=== PATIENT | male | born 1985 | race Caucasian/White ===

== ENCOUNTER 2019-07-22 02:38 | Emergency (ER) | payer MEDICAID ==
[~2019-07-22] VITALS: Ht 175.3 cm; Wt 117.9 kg
[2019-07-22 03:50] LABS: Basophils # (auto) 0.1 uL; Basophils % (auto) 0.6 % (0.0-2.0); Eosinophils # (auto) 0.1 uL; Eosinophils % (auto) 0.7 % (0.0-7.0); Hemoglobin 15.2 g/dL (13.5-17.5); Lymphocytes # (auto) 0.6 uL; Lymphocytes % (auto) 3.7 % (10.0-50.0); Mean Corpuscular Hemoglobin 31.1 pg (28.0-32.0); Mean Corpuscular Hgb Conc. 35.5 g/dL (32.0-36.0); Mean Corpuscular Volume 87.8 fL (80.0-100.0); Monocytes # (auto) 0.7 uL; Monocytes % (auto) 5.1 % (0.0-12.0); Neutrophils # (auto) 13.2 uL; Neutrophils % (auto) 89.9 % (37.0-80.0); Nucleated Red Blood Cells % 0.1 %; Platelet Count (auto) 271 10^3/uL (140-450); Red Blood Cells 4.89 10^6/uL (4.5-5.90); Red Cell Distribution Width 13.8 % (11.8-14.3); White Blood Cell 14.7 10^3/uL (4.4-10.8)
[2019-07-22 04:06] LABS: Albumin 3.9 g/dL (3.4-5.0); BUN/Creatinine Ratio 14.1; Calcium 8.7 mg/dL (8.5-10.1)
[2019-07-22 04:08] LABS: Total Protein 8.2 g/dL (6.4-8.2)
[2019-07-22] MEDS ORDERED: SODIUM CHLORIDE 0.9% 2,000 ML IV ONE (04:30)
[2019-07-22 04:46] LABS: Potassium 2.5 mmol/L (3.5-5.1)
[2019-07-22] MEDS ORDERED: POTASSIUM CHL 20MEQ/100ML 100 ML IV ONE (05:00)
[2019-07-22 06:18] LABS: Urine Bacteria NONE SEEN /hpf (None Seen); Urine Blood Negative /uL (Negative); Urine Mucus FEW (None Seen); Urine WBC 1 /hpf (0 - 3)
[2019-07-22] MEDS ORDERED: ONDANSETRON HCL 4 MG/2 ML VIAL IV ONE (06:30)
[2019-07-22 07:14] LABS: Alcohol, Urine < 3.0 mg/dL (0-5); Amphetamine Screen, Urine NEGATIVE (NEGATIVE); Barbiturate Scree,Urine NEGATIVE (NEGATIVE); Benzodiazephine Screen, Urine NEGATIVE (NEGATIVE); Cannabinoid Screen, Urine NEGATIVE (NEGATIVE); Cocaine Screen, Urine NEGATIVE (NEGATIVE); Opiate Scree,Urine NEGATIVE (NEGATIVE); Phencyclidine Screen, Urine NEGATIVE (NEGATIVE)
[2019-07-22 08:29] VITALS: BP 142/90
[2019-07-22] MEDS ORDERED: cefTRIAXone 1GM/50ML D5W 50 ML IV ONE (09:30)
[2019-07-22] MEDS ORDERED: metroNIDAZOLE 500 MG TAB PO ONE (09:30)
== END 2019-07-22 10:01 | disposition home or self-care (01) ==
LOC: ER 02:38
DX: K52.9 Noninfective gastroenteritis and colitis, unspecified (principal); I10 Essential (primary) hypertension; F17.210 Nicotine dependence, cigarettes, uncomplicated
CPT/HCPCS: 36415; 74176; 80053; 80307; 81001; 82150; 83605; 83690; 84443; 85025; 87040; 96361; 96365; 96375; 99284; J0696; J2405; J3480; J7030

== ENCOUNTER 2020-05-20 20:03 | Emergency (ER) | payer MEDICAID ==
[~2020-05-20] VITALS: Ht 175.3 cm; Wt 135.2 kg
[2020-05-20] MEDS ORDERED: cloNIDine HCL 0.1 MG TAB PO ONE (20:30)
[2020-05-20 21:09] LABS: Basophils # (auto) 0.1 10 ^3/uL (0-0.2); Basophils % (auto) 0.9 % (0.0-2.0); Eosinophils % (auto) 8.4 % (0.0-7.0); Hematocrit 43.2 % (41.0-53.0); Hemoglobin 14.6 g/dL (13.5-17.5); Lymphocytes # (auto) 2.2 10 ^3/uL (0.4-5.4); Lymphocytes % (auto) 18.6 % (10.0-50.0); Mean Corpuscular Hgb Conc. 33.7 g/dL (32.0-36.0); Monocytes # (auto) 0.8 10 ^3/uL (0-1.3); Monocytes % (auto) 6.6 % (0.0-12.0); Neutrophils # (auto) 7.6 10 ^3/uL (1.6-8.6); Neutrophils % (auto) 65.5 % (37.0-80.0); Nucleated Red Blood Cells % 0.1 %; Platelet Count (auto) 274 10^3/uL (140-450); Red Blood Cells 4.86 10^6/uL (4.5-5.90); White Blood Cell 11.6 10^3/uL (4.4-10.8)
[2020-05-20 21:26] LABS: Alanine Aminotransferase 25 U/L (16-61); Albumin 3.8 g/dL (3.4-5.0); Anion Gap 5 (5-15); Aspartate Aminotransferase 19 U/L (15-37); BUN/Creatinine Ratio 13.5; Blood Urea Nitrogen 13 mg/dL (7-18); Calcium 9.3 mg/dL (8.5-10.1); Carbon Dioxide 28 mmol/L (21-32); Chloride 107 mmol/L (98-107); GFR African American 116 mL/min; GFR Non-African American 96 mL/min; Glucose 94 mg/dL (74-106); Potassium 3.4 mmol/L (3.5-5.1); Sodium 140 mmol/L (136-145)
[2020-05-20 21:27] LABS: INR 0.96 (0.9-1.15)
[2020-05-20 21:31] LABS: Alkaline Phosphatase 96 U/L (45-117); Bilirubin, Total 0.4 mg/dL (0.2-1.0)
[2020-05-21 00:19] VITALS: BP 117/73
== END 2020-05-21 00:22 | disposition home or self-care (01) ==
LOC: ER 20:03
DX: I16.0 Hypertensive urgency (principal); F17.210 Nicotine dependence, cigarettes, uncomplicated; Z86.73 Personal history of transient ischemic attack (TIA), and cerebral infarction without residual deficits
CPT/HCPCS: 36415; 70450; 80053; 83880; 84484; 85025; 85379; 85610

== ENCOUNTER 2021-09-28 14:59 | Emergency (ER) | payer MEDICAID ==
[~2021-09-28] VITALS: Ht 175.3 cm; Wt 127.0 kg
[2021-09-28] MEDS ORDERED: ACETAMINOPHEN 500 MG TAB PO ONE (15:15)
[2021-09-28] MEDS ORDERED: ACETAMINOPHEN 325 MG TAB PO ONE (15:30)
[2021-09-28 17:59] VITALS: BP 160/109
== END 2021-09-28 19:19 | disposition home or self-care (01) ==
LOC: ER 14:59
DX: B34.9 Viral infection, unspecified (principal); R50.9 Fever, unspecified; R07.89 Other chest pain; M54.2 Cervicalgia; I10 Essential (primary) hypertension; F17.210 Nicotine dependence, cigarettes, uncomplicated; Z86.73 Personal history of transient ischemic attack (TIA), and cerebral infarction without residual deficits; Z20.822 Contact with and (suspected) exposure to COVID-19
CPT/HCPCS: 36415; 71045; 87426